=== PATIENT | male | born 1945 | race Caucasian/White ===

== ENCOUNTER 2018-08-22 21:42 | Inpatient (IN) | payer MEDICARE, BC ==
[~2018-08-22] VITALS: Ht 170.2 cm; Wt 68.2 kg
[2018-08-22] MEDS ORDERED: CLON-528 PO (22:29)
[2018-08-22] MEDS ORDERED: ATOR20TA PO (22:29)
[2018-08-22] MEDS ORDERED: DIVA-74 PO (22:29)
[2018-08-22] MEDS ORDERED: ASPI81TA52 PO (22:29)
[2018-08-22] MEDS ORDERED: morphine 4 MG/ML inj SYRINge IV ONE (22:50)
[2018-08-22] MEDS ORDERED: ondansetron/PF 4mg/2ml inj IV ONE (22:50)
[2018-08-22] MEDS ORDERED: ondansetron/PF 4mg/2ml inj IV PRN (23:55)
[2018-08-22] MEDS ORDERED: acetaminophen 325mg tablet PO PRN (23:55)
[2018-08-22] MEDS ORDERED: morphine 2 MG/ML inj. syringe IV PRN ×2 (23:55)
[2018-08-23] VITALS (18 sets, daily range): BP systolic 92–158; BP diastolic 56–93
[2018-08-23] MEDS: piperacillin-tazo 2.25gm/50ml 50 ML IV SCH ×3 (00:46→16:32)
[2018-08-23] MEDS: normal saline 1000ml 1,000 ML IV SCH ×3 (00:46→18:14)
[2018-08-23 05:50] LABS: PARTIAL THROMBOPLASTIN TIME 29 SECONDS (22-32); PROTHROMBIN TIME 10.6 SECONDS (9.0-12.0)
[2018-08-23 06:05] LABS: ALANINE AMINOTRANSFERASE 14 U/L (12-78); ALBUMIN 2.8 G/DL (3.4-5.0); ALBUMIN/GLOBULIN RATIO 0.9 (1.1-1.5); ALKALINE PHOSPHATASE 65 IU/L (46-116); ANION GAP 10 (8-16); ASPARTATE AMINO TRANSFERASE 13 U/L (10-37); BILIRUBIN,TOTAL 0.5 MG/DL (0.1-1.0); BLOOD UREA NITROGEN 11 MG/DL (7-18); BUN/CREATININE RATIO 10.4 (5.4-32.0); CALCIUM 7.9 MG/DL (8.5-10.1); CHLORIDE 111 MMOL/L (99-107); CREATININE 1.06 MG/DL (0.60-1.10); GLUCOSE 83 MG/DL (70-104); POTASSIUM 4.2 MMOL/L (3.5-5.1); SODIUM 146 MMOL/L (135-145); TOTAL CARBON DIOXIDE 25.4 MMOL/L (24-32); TOTAL PROTEIN 5.9 G/DL (6.4-8.2); eGFR 69 ML/MIN
[2018-08-23 07:04] LABS: BASOPHILS % (AUTO) 0.5 % (0-1); EOSINOPHILS % (AUTO) 1.2 % (0-6); HEMATOCRIT 41.6 % (42.0-52.0); HEMOGLOBIN 14.4 g/dl (14.0-17.9); LYMPHOCYTES % (AUTO) 17.6 % (21-51); MEAN CORPUSCULAR HEMOGLOBIN 32.8 PG (27.0-31.0); MEAN CORPUSCULAR HGB CONC 34.6 % (33.0-36.5); MEAN CORPUSCULAR VOLUME 94.7 FL (78-98); MEAN PLATELET VOLUME 8.2 FL (7.4-10.4); MONOCYTES % (AUTO) 8.9 % (2-12); NEUTROPHILS # (AUTO) 8.1 X10'3 (1.8-7.7); NEUTROPHILS % (AUTO) 71.8 % (42-75); PLATELET COUNT 246 X10'3 (140-440); RED BLOOD COUNT 4.39 X10'6 (4.70-6.10); RED CELL DISTRIBUTION WIDTH 13.4 % (11.5-14.5); WHITE BLOOD COUNT 11.3 X10'3 (4.5-11.0)
[2018-08-23 07:05] LABS: EOSINOPHILS # (AUTO) 0.1 X10'3 (0-0.9)
[2018-08-23 07:06] LABS: BASOPHILS # (AUTO) 0.1 X10'3 (0-0.2)
[2018-08-23] MEDS: divalproex sodium 250mg tablet PO SCH (07:55)
[2018-08-23] MEDS ORDERED: fentaNYL/PF 50MCG/1 ML 2ML syringe ONE ×2 (12:37→13:42)
[2018-08-23] MEDS ORDERED: LIDOcaine 2% (20mg/ml) 5ml vial ONE (12:38)
[2018-08-23] MEDS ORDERED: propofol inj 20 ML IV ONE (12:38)
[2018-08-23] MEDS ORDERED: dexamethasone sod phosphate 10mg/ml inj ONE (12:44)
[2018-08-23] MEDS ORDERED: sevoflurane 250ml liquid IH ONE (12:44)
[2018-08-23] MEDS ORDERED: fentaNYL /PF 50mcg/ml 5ml ampule ONE (12:52)
[2018-08-23] MEDS ORDERED: ePHEDrine 50MG/ML INJ. ONE (13:11)
[2018-08-23] MEDS ORDERED: neostigmine methylsulfate 1 MG/ML 10ml vial ONE (13:44)
[2018-08-23] MEDS ORDERED: glycopyrrolate 0.2mg/ml inj ONE (13:44)
[2018-08-23] MEDS ORDERED: ondansetron/PF 4mg/2ml inj ONE (13:58)
[2018-08-23] MEDS ORDERED: morphine 10mg/ml inj. ONE (14:04)
[2018-08-23] MEDS ORDERED: HYDROmorphone inj. 0.5 MG/0.5 ML DISP.SYRIN IV PRN (14:20)
[2018-08-23] MEDS ORDERED: ondansetron/PF 4mg/2ml inj IV PRN (14:20)
[2018-08-23] MEDS ORDERED: normal saline 1000ml 1,000 ML IV ONE (14:20)
[2018-08-23] MEDS ORDERED: morphine 4 MG/ML inj SYRINge IV PRN (14:20)
[2018-08-23] MEDS: HYDROmorphone inj. 0.5 MG/0.5 ML DISP.SYRIN IV PRN ×2 (14:32→14:43)
[2018-08-23] MEDS ORDERED: morphine/NS 5 mg/ml CADD 50 ML IV SCH (18:14)
[2018-08-23] MEDS ORDERED: naloxone 0.4 mg/ml inj IV PRN (18:15)
[2018-08-23] MEDS ORDERED: CADD PCA waste documentation MC PRN (18:15)
[2018-08-23] MEDS: clonazePAM 0.5mg tablet PO SCH (21:21)
[2018-08-23] MEDS: nicotine 14mg patch - 24hr TD SCH (21:21)
[2018-08-23] MEDS: docusate sod 100mg capsule PO SCH (21:21)
[2018-08-24] VITALS: BP 131/77
[2018-08-24] MEDS: piperacillin-tazo 2.25gm/50ml 50 ML IV SCH ×4 (00:37→23:49)
[2018-08-24] MEDS: morphine/NS 5 mg/ml CADD 50 ML IV SCH ×12 (01:00→23:00)
[2018-08-24 05:37] LABS: BASOPHILS % (AUTO) 0.2 % (0-1); EOSINOPHILS % (AUTO) 0 % (0-6); HEMOGLOBIN 14.7 g/dl (14.0-17.9); LYMPHOCYTES # (AUTO) 0.9 X10'3 (1.1-4.8); LYMPHOCYTES % (AUTO) 6.9 % (21-51); MEAN CORPUSCULAR HEMOGLOBIN 33.2 PG (27.0-31.0); MEAN CORPUSCULAR HGB CONC 34.9 % (33.0-36.5); MEAN PLATELET VOLUME 8.5 FL (7.4-10.4); MONOCYTES # (AUTO) 1.1 X10'3 (0-0.9); MONOCYTES % (AUTO) 8.3 % (2-12); NEUTROPHILS # (AUTO) 11.6 X10'3 (1.8-7.7); NEUTROPHILS % (AUTO) 84.6 % (42-75); PLATELET COUNT 257 X10'3 (140-440); RED BLOOD COUNT 4.42 X10'6 (4.70-6.10); RED CELL DISTRIBUTION WIDTH 13.1 % (11.5-14.5); WHITE BLOOD COUNT 13.6 X10'3 (4.5-11.0)
[2018-08-24 05:55] LABS: ALANINE AMINOTRANSFERASE 21 U/L (12-78); ALBUMIN 2.8 G/DL (3.4-5.0); ALBUMIN/GLOBULIN RATIO 0.8 (1.1-1.5); ALKALINE PHOSPHATASE 66 IU/L (46-116); ANION GAP 12 (8-16); ASPARTATE AMINO TRANSFERASE 28 U/L (10-37); BILIRUBIN,TOTAL 0.5 MG/DL (0.1-1.0); BLOOD UREA NITROGEN 13 MG/DL (7-18); BUN/CREATININE RATIO 11.7 (5.4-32.0); CALCIUM 8.2 MG/DL (8.5-10.1); CHLORIDE 108 MMOL/L (99-107); CREATININE 1.11 MG/DL (0.60-1.10); GLUCOSE 97 MG/DL (70-104); POTASSIUM 4.5 MMOL/L (3.5-5.1); SODIUM 143 MMOL/L (135-145); TOTAL CARBON DIOXIDE 22.8 MMOL/L (24-32); TOTAL PROTEIN 6.1 G/DL (6.4-8.2); eGFR 65 ML/MIN
[2018-08-24 07:43] VITALS: BP 134/81
[2018-08-24 08:36] LABS: CANCER ANTIGEN 125 14.6 U/mL (Not Estab.); CARCINOEMBRYONIC ANTIGEN 2.6 ng/mL (0.0-4.7)
[2018-08-24] MEDS: docusate sod 100mg capsule PO SCH ×2 (09:01→21:05)
[2018-08-24] MEDS: divalproex sodium 250mg tablet PO SCH (09:02)
[2018-08-24] MEDS: normal saline 1000ml 1,000 ML IV SCH (09:03)
[2018-08-24] MEDS: nicotine 14mg patch - 24hr TD SCH (09:03)
[2018-08-24 11:39] VITALS: BP 134/81
[2018-08-24 18:00] VITALS: BP 146/83
[2018-08-24] MEDS: clonazePAM 0.5mg tablet PO SCH (21:05)
[2018-08-25] VITALS: BP 150/88
[2018-08-25] MEDS: morphine/NS 5 mg/ml CADD 50 ML IV SCH ×12 (01:00→23:00)
[2018-08-25 05:09] LABS: BASOPHILS % (AUTO) 0.2 % (0-1); EOSINOPHILS % (AUTO) 0.2 % (0-6); HEMATOCRIT 40.3 % (42.0-52.0); HEMOGLOBIN 13.7 g/dl (14.0-17.9); LYMPHOCYTES # (AUTO) 0.8 X10'3 (1.1-4.8); LYMPHOCYTES % (AUTO) 8.9 % (21-51); MEAN CORPUSCULAR HEMOGLOBIN 32.1 PG (27.0-31.0); MEAN CORPUSCULAR VOLUME 94.5 FL (78-98); MEAN PLATELET VOLUME 8.2 FL (7.4-10.4); MONOCYTES % (AUTO) 10.3 % (2-12); NEUTROPHILS # (AUTO) 7.5 X10'3 (1.8-7.7); NEUTROPHILS % (AUTO) 80.4 % (42-75); PLATELET COUNT 266 X10'3 (140-440); RED BLOOD COUNT 4.26 X10'6 (4.70-6.10); RED CELL DISTRIBUTION WIDTH 12.9 % (11.5-14.5); WHITE BLOOD COUNT 9.3 X10'3 (4.5-11.0)
[2018-08-25 05:20] LABS: ALANINE AMINOTRANSFERASE 19 U/L (12-78); ALBUMIN 2.7 G/DL (3.4-5.0); ALBUMIN/GLOBULIN RATIO 0.8 (1.1-1.5); ALKALINE PHOSPHATASE 61 IU/L (46-116); ANION GAP 10 (8-16); ASPARTATE AMINO TRANSFERASE 29 U/L (10-37); BILIRUBIN,TOTAL 0.6 MG/DL (0.1-1.0); BLOOD UREA NITROGEN 14 MG/DL (7-18); BUN/CREATININE RATIO 13.5 (5.4-32.0); CHLORIDE 102 MMOL/L (99-107); CREATININE 1.04 MG/DL (0.60-1.10); GLUCOSE 109 MG/DL (70-104); POTASSIUM 4.2 MMOL/L (3.5-5.1); SODIUM 138 MMOL/L (135-145); TOTAL CARBON DIOXIDE 26.3 MMOL/L (24-32); eGFR 70 ML/MIN
[2018-08-25 07:15] VITALS: BP 134/94
[2018-08-25] MEDS: divalproex sodium 250mg tablet PO SCH (08:16)
[2018-08-25] MEDS: docusate sod 100mg capsule PO SCH ×2 (08:16→20:36)
[2018-08-25] MEDS: nicotine 14mg patch - 24hr TD SCH (08:18)
[2018-08-25] MEDS: piperacillin-tazo 2.25gm/50ml 50 ML IV SCH ×3 (08:23→23:40)
[2018-08-25] MEDS: enoxaparin 40mg/0.4ml syringe SUBCUT SCH (12:11)
[2018-08-25 12:24] VITALS: BP 122/87
[2018-08-25] MEDS: normal saline 1000ml 1,000 ML IV SCH ×2 (12:47→18:31)
[2018-08-25 18:00] VITALS: BP 133/88
[2018-08-25] MEDS: clonazePAM 0.5mg tablet PO SCH (20:36)
[2018-08-26] VITALS: BP 146/90
[2018-08-26] MEDS: morphine/NS 5 mg/ml CADD 50 ML IV SCH ×12 (01:00→23:00)
[2018-08-26] MEDS: normal saline 1000ml 1,000 ML IV SCH ×2 (05:23→19:46)
[2018-08-26 06:34] LABS: BASOPHILS % (AUTO) 0.2 % (0-1); EOSINOPHILS % (AUTO) 0.1 % (0-6); HEMOGLOBIN 14.7 g/dl (14.0-17.9); LYMPHOCYTES # (AUTO) 0.8 X10'3 (1.1-4.8); MEAN CORPUSCULAR HGB CONC 34.1 % (33.0-36.5); MEAN CORPUSCULAR VOLUME 93.6 FL (78-98); MEAN PLATELET VOLUME 8.3 FL (7.4-10.4); MONOCYTES # (AUTO) 1.2 X10'3 (0-0.9); MONOCYTES % (AUTO) 12.8 % (2-12); NEUTROPHILS # (AUTO) 7.1 X10'3 (1.8-7.7); NEUTROPHILS % (AUTO) 77.9 % (42-75); PLATELET COUNT 302 X10'3 (140-440); RED BLOOD COUNT 4.59 X10'6 (4.70-6.10); RED CELL DISTRIBUTION WIDTH 12.8 % (11.5-14.5); WHITE BLOOD COUNT 9.1 X10'3 (4.5-11.0)
[2018-08-26 06:43] LABS: ALANINE AMINOTRANSFERASE 19 U/L (12-78); ALBUMIN 2.5 G/DL (3.4-5.0); ALBUMIN/GLOBULIN RATIO 0.8 (1.1-1.5); ALKALINE PHOSPHATASE 58 IU/L (46-116); ANION GAP 9 (8-16); ASPARTATE AMINO TRANSFERASE 19 U/L (10-37); BILIRUBIN,TOTAL 0.4 MG/DL (0.1-1.0); BLOOD UREA NITROGEN 27 MG/DL (7-18); CALCIUM 7.9 MG/DL (8.5-10.1); CHLORIDE 100 MMOL/L (99-107); CREATININE 0.93 MG/DL (0.60-1.10); GLUCOSE 121 MG/DL (70-104); POTASSIUM 4.1 MMOL/L (3.5-5.1); SODIUM 135 MMOL/L (135-145); TOTAL CARBON DIOXIDE 25.8 MMOL/L (24-32); TOTAL PROTEIN 5.7 G/DL (6.4-8.2); eGFR 80 ML/MIN
[2018-08-26 06:52] VITALS: BP 161/95
[2018-08-26] MEDS: docusate sod 100mg capsule PO SCH ×2 (07:57→19:49)
[2018-08-26] MEDS: nicotine 14mg patch - 24hr TD SCH (07:57)
[2018-08-26] MEDS: piperacillin-tazo 2.25gm/50ml 50 ML IV SCH ×2 (07:58→16:24)
[2018-08-26] MEDS: enoxaparin 40mg/0.4ml syringe SUBCUT SCH (07:58)
[2018-08-26] MEDS: divalproex sodium 250mg tablet PO SCH (07:58)
[2018-08-26 12:00] VITALS: BP 120/88
[2018-08-26] MEDS: metoclopramide 5 mg/ml inj IV SCH ×2 (14:40→19:48)
[2018-08-26 19:15] VITALS: BP 136/93
[2018-08-26] MEDS: clonazePAM 0.5mg tablet PO SCH (20:44)
[2018-08-27] VITALS: BP 138/84
[2018-08-27] MEDS: piperacillin-tazo 2.25gm/50ml 50 ML IV SCH ×4 (00:33→23:34)
[2018-08-27] MEDS: morphine/NS 5 mg/ml CADD 50 ML IV SCH ×12 (01:00→23:00)
[2018-08-27] MEDS ORDERED: calcium carbonate 500mg chew tablet PO PRN (01:25)
[2018-08-27] MEDS: metoclopramide 5 mg/ml inj IV SCH ×4 (01:33→19:55)
[2018-08-27 05:51] LABS: MEAN CORPUSCULAR HEMOGLOBIN 32.8 PG (27.0-31.0); MEAN CORPUSCULAR HGB CONC 34.9 % (33.0-36.5); MEAN PLATELET VOLUME 7.9 FL (7.4-10.4); PLATELET COUNT 300 X10'3 (140-440); RED BLOOD COUNT 4.26 X10'6 (4.70-6.10); RED CELL DISTRIBUTION WIDTH 12.6 % (11.5-14.5); WHITE BLOOD COUNT 3.9 X10'3 (4.5-11.0)
[2018-08-27 06:12] LABS: ALANINE AMINOTRANSFERASE 19 U/L (12-78); ALBUMIN 2.4 G/DL (3.4-5.0); ALBUMIN/GLOBULIN RATIO 0.8 (1.1-1.5); ALKALINE PHOSPHATASE 50 IU/L (46-116); ANION GAP 11 (8-16); ASPARTATE AMINO TRANSFERASE 17 U/L (10-37); BILIRUBIN,TOTAL 0.4 MG/DL (0.1-1.0); BLOOD UREA NITROGEN 28 MG/DL (7-18); BUN/CREATININE RATIO 29.2 (5.4-32.0); CALCIUM 7.6 MG/DL (8.5-10.1); CHLORIDE 102 MMOL/L (99-107); CREATININE 0.96 MG/DL (0.60-1.10); GLUCOSE 113 MG/DL (70-104); POTASSIUM 4.1 MMOL/L (3.5-5.1); SODIUM 138 MMOL/L (135-145); TOTAL CARBON DIOXIDE 25.1 MMOL/L (24-32); TOTAL PROTEIN 5.4 G/DL (6.4-8.2); eGFR 77 ML/MIN
[2018-08-27 06:55] LABS: TOTAL CELLS COUNTED 100
[2018-08-27 06:56] LABS: LARGE PLATELETS FEW; PLATELET ESTIMATE NORMAL
[2018-08-27 06:57] LABS: TOXIC GRANULATION 1+
[2018-08-27 07:17] VITALS: BP 146/89
[2018-08-27] MEDS: docusate sod 100mg capsule PO SCH ×2 (07:33→19:56)
[2018-08-27] MEDS: enoxaparin 40mg/0.4ml syringe SUBCUT SCH (07:35)
[2018-08-27] MEDS: nicotine 14mg patch - 24hr TD SCH (07:35)
[2018-08-27] MEDS: divalproex sodium 250mg tablet PO SCH (07:36)
[2018-08-27] MEDS: normal saline 1000ml 1,000 ML IV SCH ×2 (09:36→21:47)
[2018-08-27] MEDS ORDERED: NUT.TX.IMPAIRED DIGEST FXN (Ensure Clear) 237 ML PO SCH (18:00)
[2018-08-27 19:43] VITALS: BP 143/92
[2018-08-27] MEDS ORDERED: temazepam 15mg capsule PO PRN (20:25)
[2018-08-27] MEDS: clonazePAM 0.5mg tablet PO SCH (21:38)
[2018-08-27 23:44] VITALS: BP 142/86
[2018-08-28] MEDS: morphine/NS 5 mg/ml CADD 50 ML IV SCH ×7 (01:00→13:00)
[2018-08-28] MEDS: metoclopramide 5 mg/ml inj IV SCH ×2 (01:54→07:42)
[2018-08-28 07:00] VITALS: BP 133/84
[2018-08-28] MEDS: nicotine 14mg patch - 24hr TD SCH (07:42)
[2018-08-28] MEDS: divalproex sodium 250mg tablet PO SCH (07:42)
[2018-08-28] MEDS: docusate sod 100mg capsule PO SCH (07:42)
[2018-08-28] MEDS: enoxaparin 40mg/0.4ml syringe SUBCUT SCH (07:43)
[2018-08-28] MEDS: piperacillin-tazo 2.25gm/50ml 50 ML IV SCH (07:52)
[2018-08-28 11:01] VITALS: BP 138/81
[2018-08-28] MEDS ORDERED: NUT.TX.IMPAIRED DIGEST FXN (Ensure Clear) 237 ML PO SCH (13:00)
== END 2018-08-28 14:02 | disposition home or self-care (01) | DRG 329 ==
LOC: ER 21:43 → ED HOLD 23:55 → SUR 3N 08-23 00:04
PROVIDERS: ADMIT Internal Medicine; ATTEND Internal Medicine
PROC: 07TB0ZZ Resection of Mesenteric Lymphatic, Open Approach (ICD-10-PCS; 2018-08-23)
PROC: 0DTF0ZZ Resection of Right Large Intestine, Open Approach (ICD-10-PCS; principal; 2018-08-23 12:49)
DX: K55.039 Acute (reversible) ischemia of large intestine, extent unspecified (principal); E43 Unspecified severe protein-calorie malnutrition; K56.7 Ileus, unspecified; K56.690 Other partial intestinal obstruction; I71.4 Abdominal aortic aneurysm, without rupture; G40.909 Epilepsy, unspecified, not intractable, without status epilepticus; F41.9 Anxiety disorder, unspecified; F17.200 Nicotine dependence, unspecified, uncomplicated; I12.9 Hypertensive chronic kidney disease with stage 1 through stage 4 chronic kidney disease, or unspecified chronic kidney disease; J44.9 Chronic obstructive pulmonary disease, unspecified; N18.9 Chronic kidney disease, unspecified; Z79.82 Long term (current) use of aspirin; Z88.8 Allergy status to other drugs, medicaments and biological substances; Z71.6 Tobacco abuse counseling; Z68.23 Body mass index [BMI] 23.0-23.9, adult
CPT/HCPCS: 36415; 71045; 80053; 82378; 85025; 85610; 85730; 86304; 87070; 88307; 93005; 96374; 96375; 99285; A4649; A7000; C1758; J1100; J1170; J1650; J2001; J2270; J2405; J2543; J2704; J2710; J2765; J3010; J3490; J7030; J7120